=== PATIENT | male | born 2000 | race Caucasian/White ===

== ENCOUNTER 2019-10-04 22:55 | Emergency (ER) | payer SELFPAY ==
[~2019-10-04 22:55] MED LIST: Iopamidol 370 76% 100 ML VIAL ONE
[2019-10-04] MEDS ORDERED: Adacel (T-DAP) 0.5 ML SYRINGE ONE (23:03)
[2019-10-04 23:22] LABS: #Basophils 0.1 thou/uL (0.0-0.2); #Eosinphils 0.2 thou/uL (0.0-0.7); #Lymphocytes 2.9 thou/uL (1.20-3.40); #Monocytes 0.7 thou/uL (0.11-0.59); #Neutrophils 5.2 thou/uL (1.40-6.50); %Basophils 0.6 % (0.0-1.0); %Eosinophils 1.9 % (0.0-10.0); %Neutrophils 57.6 % (42.0-75.0); Hemoglobin 15.6 g/dL (14.0-18.0); Mean Corpuscular HGB CONC 34.6 g/dL (32.0-36.0); Mean Corpuscular Hemoglobin 31.8 pg (27.0-31.0); Mean Corpuscular Volume 91.8 fL (78.0-98.0); Mean Platelet Volume 7.9 fL (7.4-10.4); Platelet Count 254 thou/uL (130-400); RBC Distribution Width 11.3 % (11.5-14.5); Red Blood Cell (RBC) Count 4.92 mill/uL (4.70-6.10)
[2019-10-04 23:27] LABS: INR-International Normal Ratio 1.1; PTT 26.3 sec (22.9-36.1); Prothrombin Time 14.2 sec (12.0-14.7)
[2019-10-04 23:42] LABS: Acetaminophen Less than 6.0 mcg/mL (10.0-30.0); Alcohol 219 mg/dL (Less than 10); Lipase 35 U/L (8-78); Salicylate Less than 8.0 mg/dL (15.0-30.0)
--- NOTE | 2019-10-04 23:54 | CT ---
CERVICAL SPINE CT: Date: 10/04/2019 COMPARISON: None. HISTORY: Injury, trauma, pain. TECHNIQUE: Axial CT imaging at 2.5 mm intervals through the cervical spine with coronal and sagittal reformatted imaging. FINDINGS: The imaged lung apices are unremarkable. The craniocervical junction, atlantoaxial interspace, cervic othoracic junction, occipital condyles, dens, and C1-2 articulation are unremarkable. No displaced cervical spine fracture or evidence of dislocation. IMPRESSION: No acute fracture or dislocation. Results called to Dr. Paredes at 1130 hours on 10/04/2019. CODE CR.
--- NOTE | 2019-10-04 23:57 | CT ---
HEAD CT WITHOUT CONTRAST: Date: 10/04/2019 COMPARISON: None. HISTORY: Injury, trauma, pain. TECHNIQUE: Axial CT imaging at 5 mm intervals from vertex through skull base without contrast. FINDINGS: Mild periorbital soft tissue swelling is suspected on the left. No intracranial hemorrhage, midline s hift, mass effect, or ventricular enlargement. No displaced calvarial fracture. IMPRESSION: No intracranial hemorrhage or displaced calvarial fracture. Results called to Dr. Paredes at 2330 hours on 10/04/2019. CODE CR.
[2019-10-05] MEDS ORDERED: Bacitracin 1 PK ONE
[2019-10-05 00:32] LABS: ALT (SGPT) 42 U/L (8-55); AST (SGOT) 63 U/L (5-34); Albumin 4.6 g/dL (3.5-5.0); Alkaline Phosphatase 83 U/L (40-110); Anion Gap 18 mmol/L (10-20); BUN (Urea Nitrogen) 15 mg/dL (8.9-20.6); Bilirubin, Total 0.4 mg/dL (0.2-1.2); CK (CPK) 529 U/L (30-200); Calc. Creatinine Clearance 0 mL/min (70-130); Calcium 8.9 mg/dL (7.8-10.44); Carbon Dioxide 20 mmol/L (22-29); Chloride 109 mmol/L (98-107); Estimated GFR-MDRD 73; Glucose 92 mg/dL (70-105); Potassium 4.4 mmol/L (3.5-5.1); Protein, Total 7.6 g/dL (6.0-8.3); Sodium 143 mmol/L (136-145)
--- NOTE | 2019-10-05 00:34 | CT ---
CT OF CHEST AND ABDOMEN AND PELVIS AND THORACIC SPINE AND LUMBAR SPINE: Date: 10/04/2019 HISTORY: Injury, trauma, pain. TECHNIQUE: Axial CT imaging at 5 mm intervals from the thoracic inlet through the pubic symphysis with IV contra st. Coronal and sagittal reformatted imaging obtained. FINDINGS: The axillary, mediastinal, and hilar regions demonstrate no evidence for lymphadenopathy. There is no significant pleural, pericardial, or mediastinal fluid seen. Motion artifact slightly limits detaile d assessment of the vascular structures of the anterior and superior mediastinum. The vascular struct ures appear grossly unremarkable. The sternum and the manubrium appear grossly unremarkable on the sagittal imaging. There is no pneumothorax on either side. The lung parenchyma demonstrates no acute findings on either side. There is no endobronchial lesion seen. The extraspinal osseous structures of the chest demonstrate no acute findings. No free intraperitonea l air or fluid is seen. The liver, gallbladder, spleen, pancreas, adrenal glands, and kidneys are grossly unremarkable. Limit ed assessment of the bowel appears grossly unremarkable. The vascular structures of the abdomen/pelvi s appear unremarkable. No abdominal or pelvic lymphadenopathy. The extraspinal osseous structures of the abdomen/pelvis appear unremarkable. There is no acute fracture or evidence of dislocation involving the thoracic or lumbar spine. IMPRESSION: No acute findings. Results called to Dr. Paredes at 2335 hours on 10/04/2019. CODE CR.
--- NOTE | 2019-10-05 00:37 | RAD ---
LEFT KNEE 4 VIEWS: Date: 10/04/2019 COMPARISON: None. HISTORY: Injury, trauma, pain. FINDINGS: No displaced fracture or dislocation. No knee joint effusion. There is medial soft tissue swelling wi th questionable medial subcutaneous gas which may signify laceration in the proper clinical setting. IMPRESSION: No acute fracture or dislocation seen. POS: [facility]
[2019-10-05 02:42] LABS: Amphetamine Not Detected (NotDetected); Barbiturates Screen Not Detected (NotDetected); Benzodiazepine Screen Not Detected (NotDetected); Cocaine Metabolite Screen Not Detected (NotDetected); Medtox Control Line Valid? VALID (VALID); Medtox Reader # READER 1; Methadone Not Detected (NotDetected); Methamphetamine Not Detected (NotDetected); Opiate Screen Not Detected (NotDetected); Oxycodone Screen Not Detected (NotDetected); Phencyclidine (PCP) Not Detected (NotDetected); THC/Cannabinoid Screen Detected (NotDetected); Tricyclic Screen Not Detected (NotDetected)
[2019-10-05] MEDS ORDERED: methylPREDNISolone Sod Succ/PF 125 MG/2 ML VIAL ONE (02:42)
[2019-10-05] MEDS ORDERED: hydrALAZINE 20 MG/ML VIAL ONE (02:42)
== END 2019-10-05 03:57 | disposition home or self-care (01) ==
LOC: ERS 22:55
DX: S81.002A Unspecified open wound, left knee, initial encounter (principal); S40.819A Abrasion of unspecified upper arm, initial encounter; F10.129 Alcohol abuse with intoxication, unspecified; F17.210 Nicotine dependence, cigarettes, uncomplicated; R41.82 Altered mental status, unspecified; Y90.7 Blood alcohol level of 200-239 mg/100 ml; X58.XXXA Exposure to other specified factors, initial encounter
CPT/HCPCS: 36415; 51701; 70450; 71260; 72125; 74177; 80053; 80306; 80307; 82550; 83690; 84484; 85025; 85610; 85730; 86850; 86900; 86901; 90471; 90715; 93005; 96361; 96365; G0390; J0360; J0690; J2930; Q9967